=== PATIENT | male | born 1940 | race Caucasian/White ===

== ENCOUNTER 2020-10-04 19:11 | Emergency (ER) | payer MEDICARE, MEDICAID ==
[~2020-10-04] VITALS: Ht 167.6 cm; Wt 67.0 kg
[2020-10-04 21:07] VITALS: BP 111/80
== END 2020-10-04 21:10 | disposition home or self-care (01) ==
LOC: ER 19:12
DX: N43.3 Hydrocele, unspecified (principal); I25.10 Atherosclerotic heart disease of native coronary artery without angina pectoris; E78.00 Pure hypercholesterolemia, unspecified; I10 Essential (primary) hypertension; E11.9 Type 2 diabetes mellitus without complications; Z98.61 Coronary angioplasty status; Z95.5 Presence of coronary angioplasty implant and graft
CPT/HCPCS: 76870; 93976; 99284

== ENCOUNTER 2022-12-01 12:02 | Emergency (ER) | payer MEDICARE, MEDICAID ==
[~2022-12-01] VITALS: Ht 167.6 cm; Wt 63.6 kg
[2022-12-01 12:29] LABS: BASOPHILS # (AUTO) 0.1 X10'3 (0-0.2); BASOPHILS % (AUTO) 0.9 % (0-1); EOSINOPHILS % (AUTO) 0.5 % (0-6); HEMATOCRIT 42.7 % (42.0-52.0); HEMOGLOBIN 14.6 g/dl (14.0-17.9); LYMPHOCYTES # (AUTO) 1.2 X10'3 (1.1-4.8); LYMPHOCYTES % (AUTO) 21.9 % (21-51); MEAN CORPUSCULAR HEMOGLOBIN 30.4 PG (27.0-31.0); MEAN CORPUSCULAR HGB CONC 34.1 g/dL (33.0-36.5); MEAN CORPUSCULAR VOLUME 89.1 FL (78-98); MEAN PLATELET VOLUME 6.9 FL (7.4-10.4); MONOCYTES # (AUTO) 0.6 X10'3 (0-0.9); MONOCYTES % (AUTO) 9.8 % (2-12); NEUTROPHILS # (AUTO) 3.8 X10'3 (1.8-7.7); NEUTROPHILS % (AUTO) 66.9 % (42-75); PLATELET COUNT 208 X10'3 (140-440); RED BLOOD COUNT 4.79 X10'6 (4.70-6.10); RED CELL DISTRIBUTION WIDTH 14.6 % (11.5-14.5); WHITE BLOOD COUNT 5.7 X10'3 (4.5-11.0)
[2022-12-01 12:44] LABS: ALANINE AMINOTRANSFERASE 18 U/L (12-78); ALBUMIN/GLOBULIN RATIO 1.2 (1.1-1.5); ALKALINE PHOSPHATASE 88 IU/L (46-116); ANION GAP 9 (8-16); ASPARTATE AMINO TRANSFERASE 16 U/L (10-37); BILIRUBIN,TOTAL 0.7 MG/DL (0.1-1.0); BLOOD UREA NITROGEN 15 MG/DL (7-18); BUN/CREATININE RATIO 13.2 (10.0-20.0); CALCIUM 8.7 MG/DL (8.5-10.1); CHLORIDE 101 MMOL/L (99-107); CREATININE 1.14 MG/DL (0.60-1.10); GLUCOSE 256 MG/DL (70-104); POTASSIUM 3.7 MMOL/L (3.5-5.1); SODIUM 133 MMOL/L (135-145); TOTAL CARBON DIOXIDE 22.9 MMOL/L (24-32); TOTAL PROTEIN 7.4 G/DL (6.4-8.2); eGFR 61 ML/MIN
[2022-12-01 13:44] LABS: CLARITY,URINE CLEAR (Clear); COLOR,URINE YELLOW (Yellow); GLUCOSE, URINE 500 mg/dl (Neg); KETONES,URINE TRACE mg/dl (Neg); LEUKOCYTE ESTERASE ,URINE NEGATIVE (Neg); NITRITES, URINE NEGATIVE (Neg); OCCULT BLOOD,URINE NEGATIVE (Neg); PROTEIN,URINE NEGATIVE (Neg); UA COLLECTION TYPE VOIDED; UROBILINOGEN,URINE 0.2 E.U/dL (0.2-1.0)
[2022-12-01] MEDS ORDERED: normal saline 1000ml 1,000 ML IV ONE (14:10)
[2022-12-01 14:49] VITALS: BP 142/80
== END 2022-12-01 15:36 | disposition home or self-care (01) ==
LOC: ER 12:03
DX: J06.9 Acute upper respiratory infection, unspecified (principal); Z20.822 Contact with and (suspected) exposure to COVID-19; E78.00 Pure hypercholesterolemia, unspecified; I11.0 Hypertensive heart disease with heart failure; E11.9 Type 2 diabetes mellitus without complications; Z90.49 Acquired absence of other specified parts of digestive tract
CPT/HCPCS: 36415; 71045; 80053; 81003; 83880; 84484; 85025; 87811; 93005; 96360; 99285; J7030

== ENCOUNTER 2023-02-18 11:00 | Day surgery (SDC) | payer MEDICARE, MEDICAID ==
[2023-02-18] VITALS (10 sets, daily range): BP systolic 111–146; BP diastolic 42–76; PULSE 60–71; RESP 13–19; TEMP 97.8; O2SAT 97–99
[~2023-02-18] VITALS: Ht 165.1 cm; Wt 62.2 kg
[2023-02-18] MEDS ORDERED: normal saline 1,000 ML IV SCH (11:25)
[2023-02-18] MEDS ORDERED: diphenhydrAMINE 25mg capsule PO PRN (11:25)
[2023-02-18] MEDS ORDERED: LORazepam 0.5 MG tablet PO PRN (11:25)
[2023-02-18] MEDS ORDERED: ATOR40TA PO (11:26)
[2023-02-18 11:52] LABS: BASOPHILS % (AUTO) 0.7 % (0-1); EOSINOPHILS # (AUTO) 0.1 X10'3 (0-0.9); EOSINOPHILS % (AUTO) 2.1 % (0-6); HEMATOCRIT 42.3 % (42.0-52.0); HEMOGLOBIN 14.3 g/dl (14.0-17.9); LYMPHOCYTES # (AUTO) 1.9 X10'3 (1.1-4.8); LYMPHOCYTES % (AUTO) 29.6 % (21-51); MEAN CORPUSCULAR HGB CONC 33.8 g/dL (33.0-36.5); MEAN CORPUSCULAR VOLUME 88.7 FL (78-98); MEAN PLATELET VOLUME 7.4 FL (7.4-10.4); MONOCYTES # (AUTO) 0.5 X10'3 (0-0.9); MONOCYTES % (AUTO) 8.5 % (2-12); NEUTROPHILS # (AUTO) 3.7 X10'3 (1.8-7.7); NEUTROPHILS % (AUTO) 59.1 % (42-75); PLATELET COUNT 230 X10'3 (140-440); RED BLOOD COUNT 4.78 X10'6 (4.70-6.10); RED CELL DISTRIBUTION WIDTH 14.8 % (11.5-14.5); WHITE BLOOD COUNT 6.3 X10'3 (4.5-11.0)
[2023-02-18 12:07] LABS: ALBUMIN 3.9 G/DL (3.4-5.0); ANION GAP 14 (8-16); BLOOD UREA NITROGEN 22 MG/DL (7-18); BUN/CREATININE RATIO 21.6 (10.0-20.0); CALCIUM 8.8 MG/DL (8.5-10.1); CHLORIDE 102 MMOL/L (99-107); CREATININE 1.02 MG/DL (0.60-1.10); GLUCOSE 292 MG/DL (70-104); POTASSIUM 3.7 MMOL/L (3.5-5.1); SODIUM 137 MMOL/L (135-145); TOTAL CARBON DIOXIDE 21.4 MMOL/L (24-32); eGFR 70 ML/MIN
[2023-02-18] MEDS ORDERED: nitroGLYCERIN-Tridil 50MG/D5W 250 ML IV ONE (13:49)
[2023-02-18] MEDS ORDERED: verapamil 2.5 mg/ml inj IV ONE (13:50)
[2023-02-18] MEDS ORDERED: LIDOcaine 1% (10mg/ml) 2ml vial ONE (13:50)
[2023-02-18] MEDS ORDERED: midazolam 1 mg/ML 2ml injection ONE (13:50)
[2023-02-18] MEDS ORDERED: fentaNYL/PF 50MCG/1 ML 2ML syringe ONE (13:50)
[2023-02-18] MEDS ORDERED: heparin 1,000unit/ml 10ml vial 10 ML ONE (13:50)
[2023-02-18] MEDS ORDERED: iohexol 350MG/ML 100ml bottle IV ONE ×3 (13:50→15:12)
[2023-02-18] MEDS ORDERED: iohexol 350 MG/ML 50ML vial IV ONE ×2 (14:22→14:28)
[2023-02-18] MEDS ORDERED: aspirin 325mg tablet ONE (14:54)
[2023-02-18] MEDS ORDERED: clopidogrel 300mg tablet ONE (14:55)
[2023-02-18] MEDS ORDERED: heparin 1,000 UNITS/NS 500ml 500 ML ONE (15:13)
[2023-02-18] MEDS ORDERED: HYDROcodone/acetaminophen 5mg/325mg tablet PO PRN (16:25)
[2023-02-18] MEDS ORDERED: HYDROcodone/acetaminophen 10/325mg tab PO PRN (16:25)
== END 2023-02-18 18:48 | disposition home or self-care (01) ==
LOC: SSTAY O 11:00
PROVIDERS: ATTEND Student in an Organized Health Care Education/Training Program
DX: R94.39 Abnormal result of other cardiovascular function study (principal); T82.855A Stenosis of coronary artery stent, initial encounter; I25.10 Atherosclerotic heart disease of native coronary artery without angina pectoris; E78.5 Hyperlipidemia, unspecified; I65.29 Occlusion and stenosis of unspecified carotid artery; E11.9 Type 2 diabetes mellitus without complications; M19.90 Unspecified osteoarthritis, unspecified site; Z95.1 Presence of aortocoronary bypass graft; Z79.899 Other long term (current) drug therapy; Y84.0 Cardiac catheterization as the cause of abnormal reaction of the patient, or of later complication, without mention of misadventure at the time of the procedure; Y92.89 Other specified places as the place of occurrence of the external cause
CPT/HCPCS: 36415; 80048; 85025; 85347; 85610; 93005; 93459; 93567; 99152; 99153; C1874; C9600; J1644; J2250; J3010; J3490; J7030; Q0163; Q9967; A6258; A6402; A6449; C1725; C1751; C1769; C1894